=== PATIENT | female | born 1995 | race Two or more races ===

== ENCOUNTER 2023-03-27 09:52 | Emergency (ER) | payer SELFPAY ==
[~2023-03-27] VITALS: Ht 162.6 cm; Wt 44.0 kg
[2023-03-27 10:17] VITALS: BP 108/74
[2023-03-27] MEDS ORDERED: LORAZEPAM 1MG TABLET PO ONE (11:15)
[2023-03-27] MEDS ORDERED: LORA-250 MT (13:30)
[2023-03-27] MEDS ORDERED: B50 MT (13:34)
== END 2023-03-27 13:38 | disposition home or self-care (01) ==
LOC: ER 09:52
DX: F41.9 Anxiety disorder, unspecified (principal); R42 Dizziness and giddiness; E86.0 Dehydration
CPT/HCPCS: 99281; 99282